=== PATIENT | female | born 1940 | race Caucasian/White ===

== ENCOUNTER 2020-10-17 12:48 | Emergency (ER) | payer MEDICARE ==
[~2020-10-17] VITALS: Ht 162.6 cm; Wt 84.0 kg
[2020-10-17] MEDS ORDERED: BACLOFEN 10 MG TABLET PO STA (13:05)
[2020-10-17] MEDS ORDERED: HYDROcodone/APAP 5/325MG 1 TAB TABLET PO ONE (13:30)
--- NOTE | 2020-10-17 13:57 | RAD ---
XR BILATERAL HIP (WITH OR WITHOUT PELVIS) LEFT 2 VIEWS History: Reason: pain, no trauma, replacement / Spl. Instructions: / History: Technique: AP view the pelvis and 2 additional views of the left hip. Comparison: None. Findings: Left total hip arthroplasty. Postoperative changes lumbar spine L4-L5 posterior stabilization with la teral mass graft. Normal alignment. No fracture. Mild sacroiliac DJD. Impression: 1. No acute osseous abnormality. 2. Left hip arthroplasty. Electronically signed by: Talha Anderson DO (10/17/2020 1:55 PM) [id number]
[2020-10-17] MEDS ORDERED: predniSONE 10 MG TABLET. PO ONE (14:15)
[2020-10-17] MEDS ORDERED: PRED-220 PO (14:17)
[2020-10-17] MEDS ORDERED: HYDR-2759 PO (14:17)
[2020-10-17] MEDS ORDERED: BACL10TA PO (14:17)
--- NOTE | 2020-10-17 14:18 | PHYS DOC ---
Past History Past Surgical History: Hip Replacement, Other Additional Past Surgical Histo: 2 RODS AND 4 SCREWS IN LOWER BACK General Adult EDM: Chief Complaint: HIP PAIN HPI: HPI: 80-year-old female presents with left low back/hip pain. She states the pain radiates into her groin and down to her knee. It is mostly centered in the low back at this time. It is painful to walk or bear weight. She denies any falls or trauma. It just started hurting today for no apparent reason. It is very tender to palpation over the sacroiliac region. She has had hip replacement in that hip previously. She also has surgical rods in her lumbar. The patient denies numbness or tingling or altered sensation on the legs. No loss of bowel or bladder. Review of Systems: Review of Systems: Constitutional: Denies fever or chills Eyes: Denies change in visual acuity HENT: Denies nasal congestion or sore throat Respiratory: Denies cough or shortness of breath Cardiovascular: Denies chest pain or edema GI: Denies abdominal pain, nausea, vomiting, bloody stools or diarrhea : Denies dysuria Musculoskeletal: Low back pain Integument: Denies rash Neurologic: Denies headache, focal weakness or sensory changes Endocrine: Denies polyuria or polydipsia Lymphatic: Denies swollen glands Psychiatric: Denies depression or anxiety Current Medications: Current Meds: Current Medications Medications (Trade) Dose Ordered Sig/Stephon Start Time Stop Time Status Last Admin Dose Admin Acetaminophen/ Hydrocodone Bitart (Lortab 5/325) 1 tab 1X ONCE 10/17/20 13:30 10/17/20 13:31 DC 10/17/20 13:23 1 TAB Baclofen (Lioresal) 10 mg 1X STAT 10/17/20 13:05 10/17/20 13:10 DC 10/17/20 13:23 10 MG Allergies: Allergies: Allergies Coded Allergies Type Severity Reaction Last Updated Verified pregabalin Allergy Unknown 10/17/20 Yes Physical Exam: PE: Constitutional: Well developed, well nourished, no acute distress, non-toxic appearance. [] HENT: Normocephalic, atraumatic, bilateral external ears normal, oropharynx mois t, no oral exudates, nose normal. [] Eyes: PERRLA, EOMI, conjunctiva normal, no discharge. [] Neck: Normal range of motion, no tenderness, supple, no stridor. [] Cardiovascular:Heart rate regular rhythm, no murmur [] Lungs & Thorax: Bilateral breath sounds clear to auscultation [] Abdomen: Bowel sounds normal, soft, no tenderness, no masses, no pulsatile masses. [] Skin: Warm, dry, no erythema, no rash. [] Back: Tenderness over the left sacroiliac joint. [] Extremities: Tenderness over the posterior left hip, no cyanosis, no clubbing, no edema. [] Neurologic: Alert and oriented X 3, normal motor function, normal sensory function, no focal deficits noted. [] Psychologic: Affect normal, judgement normal, mood normal. [] Current Patient Data: Vital Signs: Vital Signs Date Time Temp Pulse Resp B/P (MAP) Pulse Ox O2 Delivery O2 Flow Rate FiO2 10/17/20 13:23 16 10/17/20 12:48 98.0 90 156/71 97 Room Air EKG: EKG: [] Radiology/Procedures: Radiology/Procedures: [] Impressions: XR BILATERAL HIP (WITH OR WITHOUT PELVIS) LEFT 2 VIEWS History: Reason: pain, no trauma, replacement / Spl. Instructions: / History: Technique: AP view the pelvis and 2 additional views of the left hip. Comparison: None. Findings: Left total hip arthroplasty. Postoperative changes lumbar spine L4-L5 posterior stabilization with lateral mass graft. Normal alignment. No fracture. Mild sacroiliac DJD. Impression: 1. No acute osseous abnormality. 2. Left hip arthroplasty. Electronically signed by: Talha Sanchez DO (10/17/2020 1:55 PM) [id number] DICTATED AND SIGNED BY: TALHA SANCHEZ DO DATE: 10/17/20 1353 CC: ЕЛЕНА SERNA DO; LUCIAN REY ~MTH0 0 Heart Score: C/O Chest Pain: N/A Risk Factors: Risk Factors: DM, Current or recent (<one month) smoker, HTN, HLP, family history of CAD, obesity. Risk Scores: Score 0 - 3: 2.5% MACE over next 6 weeks - Discharge Home Score 4 - 6: 20.3% MACE over next 6 weeks - Admit for Clinical Observation Score 7 - 10: 72.7% MACE over next 6 weeks - Early Invasive Strategies Course & Med Decision Making: Course & Med Decision Making Pertinent Labs and Imaging studies reviewed. (See chart for details) The patient's x-ray is negative for fracture. Her hip replacement is in appropriate position. See official read for more details. Based on the patient's symptoms and my physical exam, it appears to be sacroiliitis with surrounding muscle spasm. I have treated her in the ER with baclofen, [place] 5/325 and 50 mg of prednisone. I will discharge her with prescriptions for these medications. She is stable for discharge at this time. [] Dragon Disclaimer: Dragon Disclaimer: This electronic medical record was generated, in whole or in part, using a voice recognition dictation system. Departure Departure: Impression: Primary Impression: Disorder of left sacroiliac joint Disposition: HOME / SELF CARE / HOMELESS Condition: STABLE Referrals: LUCIAN REY (PCP) Patient Instructions: Sacroiliac Joint Dysfunction Scripts Baclofen (BACLOFEN) 10 Mg Tablet 1 TAB PO TID PRN for MUSCLE SPASMS, #30 TAB 0 Refills Prov: ЕЛЕНА SERNA DO 10/17/20 Hydrocodone/Acetaminophen (Hydrocodone-Acetamin 5-325 mg) 1 Each Tablet 1 EACH PO Q4-6HRS PRN for PAIN, #10 TAB Prov: ЕЛЕНА SERNA DO 10/17/20 Prednisone (PREDNISONE) 10 Mg Tablet 50 MG PO DAILY for hip pain for 3 Days, #15 TAB Prov: ЕЛЕНА SERNA DO 10/17/20 ЕЛЕНА SERNA DO Oct 17, 2020 14:18
[2020-10-17 14:25] VITALS: BP 142/72
== END 2020-10-17 14:31 | disposition home or self-care (01) ==
LOC: ER 12:48
DX: M53.3 Sacrococcygeal disorders, not elsewhere classified (principal); M25.552 Pain in left hip; M54.5 Low back pain; Z96.649 Presence of unspecified artificial hip joint; Z88.8 Allergy status to other drugs, medicaments and biological substances
CPT/HCPCS: 73502; 99284; J7512

== ENCOUNTER 2020-10-22 00:22 | Emergency (ER) | payer MEDICARE ==
[~2020-10-22] VITALS: Ht 162.6 cm; Wt 81.8 kg
[~2020-10-22 00:22] MED LIST: BACL10TA PO; HYDR-2759 PO; PRED-220 PO
[2020-10-22] MEDS ORDERED: IV RINGERS SOLUTION,LACTATED 1,000 ML IV SCH (01:00)
--- NOTE | 2020-10-22 01:18 | EKG ---
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
[2020-10-22 01:20] LABS: BASO # 0.1 x10^3/uL (0.0-0.2); BASO % 1 % (0-3); EOS # 0.1 x10^3/uL (0.0-0.7); EOS % 1 % (0-3); HEMATOCRIT 42.9 % (36.0-47.0); LYMPH # 2.8 x10^3/uL (1.0-4.8); LYMPH % 28 % (24-48); MEAN CORPUSCULAR HEMOGLOBIN 29 pg (25-35); MEAN CORPUSCULAR HGB CONC 33 g/dL (31-37); MEAN CORPUSCULAR VOLUME 89 fL (79-100); MONO # 0.8 x10^3/uL (0.0-1.1); MONO % 8 % (0-9); NEUT # 6.2 x10^3uL (1.8-7.7); NEUT % 62 % (31-73); PLATELET COUNT 308 x10^3/uL (140-400); RED BLOOD COUNT 4.84 x10^6/uL (3.50-5.40); RED CELL DISTRIBUTION WIDTH 15.2 % (11.5-14.5)
[2020-10-22 01:33] LABS: ALBUMIN 3.9 g/dL (3.4-5.0); DIRECT BILIRUBIN 0.1 mg/dL (0.0-0.2); MAGNESIUM 2.7 mg/dL (1.8-2.4); TOTAL BILIRUBIN 0.4 mg/dL (0.2-1.0); TOTAL PROTEIN 7.1 g/dL (6.4-8.2)
--- NOTE | 2020-10-22 01:51 | RAD ---
INDICATION: Reason: mental status change / Spl. Instructions: / History: COMPARISON: None. TECHNIQUE: Axial CT images obtained through the head without intravenous contrast. One or more of the following individualized dose reduction techniques were utilized for this examinat ion: 1. Automated exposure control; 2. Adjustment of the mA and/or kV according to patient size; 3 . Use of iterative reconstruction technique. FINDINGS: No intracranial hemorrhage. No significant midline shift. Ventricles and sulci are globally prominent. Scattered foci of low attenuation within the white matter. IMPRESSION: * No acute intracranial hemorrhage. * Scattered regions of low attenuation within the white matter. Non-specific in nature but a common finding and frequently secondary to small vessel ischemic disease. Electronically signed by: Freddie Back MD (10/22/2020 1:49 AM) [id number]
--- NOTE | 2020-10-22 01:54 | RAD ---
INDICATION: Reason: cp / Spl. Instructions: / History: COMPARISON: None. FINDINGS: Single view of chest obtained. Hypoexpanded exam with mild elevation of the right hemidiaphragm. Haziness at left lung base without consolidation elsewhere in the lungs. Degenerative changes of the shoulders and spine. IMPRESSION: * Haziness at left lung base which could be secondary to overlap of structures or atelectasis but ea rly infiltrate is also within the differential. Electronically signed by: Freddie Back MD (10/22/2020 1:51 AM) [id number]
[2020-10-22 01:55] LABS: BUN ISTAT 59 mg/dL (8-26); GLUCOSE ISTAT 148 mg/dL (60-99); POTASSIUM ISTAT 4.7 mmol/L (3.5-5.0); SODIUM ISTAT 136 mmol/L (135-145)
[2020-10-22 01:59] LABS: BARBITURATES NEG (NEG); BENZODIAZEPINES NEG (NEG); CANNABINOIDS NEG (NEG); COCAINE NEG (NEG); METHADONE NEG (NEG); OPIATES POS (NEG); PHENCYCLIDINE NEG (NEG)
[2020-10-22 02:22] LABS: AMPHETAMINE/METHAMPHETAMINE NEG (NEG)
[2020-10-22 02:55] LABS: SEDIMENTATION RATE 20 (0-25)
[2020-10-22 03:04] LABS: BILIRUBIN,URINE NEG (NEG); CLARITY,URINE CLEAR; COLOR,URINE YELLOW; GLUCOSE,URINE >=1000 mg/dL (NEG); NITRITE,URINE NEG (NEG); UROBILINOGEN,URINE 0.2 mg/dL (0.2 mg/dL)
[2020-10-22 03:05] LABS: BACTERIA,URINE 0 /HPF (0-FEW); RBC,URINE 0 /HPF (0-2); SQUAMOUS EPITHELIAL CELL,UR FEW /LPF; WBC,URINE 0 /HPF (0-4)
--- NOTE | 2020-10-22 03:08 | PHYS DOC ---
Past History Past Medical History: Arthritis Past Surgical History: Hip Replacement, Other Additional Past Surgical Histo: 2 RODS AND 4 SCREWS IN LOWER BACK Alcohol Use: None General Adult EDM: Chief Complaint: ALTERED MENTAL STATUS HPI: HPI: "'''I was in here the other day... He said my sacro.. iliac was out of whack.. then put me some pain meds.. steroids.. I think the new meds... have made me goofy.. Maybe a little dizzy " " I have been a litte more short of breath recently too..." Patient is a 80 year old female who presents with dyspnea and altered mental status tonight. Pt. recent started on prednisone, hydrocodone and Baclofen. for sacroiliac inflammation. Patient was seen in the ER on 10/17 for the lower back pain. Pt. states she was somewhat confused tonight after taking some of new meds. Patient denies any recent travel. No specific ill contacts. No history of trauma. Patient denies any previous history of DVTs or pulmonary embolisms. Patient did get Covid vaccination in June. The pt. normally follows with Dr. Ha. Review of Systems: Review of Systems: Constitutional: Denies fever or chills Eyes: Denies change in visual acuity HENT: Denies nasal congestion or sore throat Respiratory: Complains of shortness of breath Cardiovascular: Denies chest pain or edema GI: Denies abdominal pain, nausea, vomiting, bloody stools or diarrhea : Denies dysuria Musculoskeletal: Recent history of exacerbation of lumbar sacral back pain Integument: Denies rash Neurologic: Denies headache, focal weakness or sensory changes. Patient complains of mild dizziness and almost confusion. Endocrine: Denies polyuria or polydipsia Lymphatic: Denies swollen glands Psychiatric: Denies depression or anxiety Family History: Family History: Noncontributory to presentation Current Medications: Current Meds: Current Medications Medications (Trade) Dose Ordered Sig/Stephon Start Time Stop Time Status Last Admin Dose Admin Lactated Ringer's 1,000 ml @ 1,000 mls/hr Q1H 10/22/20 01:00 10/22/20 01:59 DC 10/22/20 01:00 1,000 MLS/HR Allergies: Allergies: Allergies Coded Allergies Type Severity Reaction Last Updated Verified pregabalin Allergy Unknown 10/17/20 Yes Physical Exam: PE: Constitutional: Mild distress, non-toxic appearance. [] HENT: Normocephalic, atraumatic, bilateral external ears normal, oropharynx moist, no oral exudates, nose normal. [] Eyes: PERRLA, EOMI, conjunctiva normal, no discharge. [] Neck: Normal range of motion, no tenderness, supple, no stridor. No appreciable bruits Cardiovascular:Heart rate regular rhythm, no murmur [, PMI to the left Lungs & Thorax: Bilateral breath sounds equal apex on auscultation []. Some basilar crackles. Abdomen: Bowel sounds normal, soft, no tenderness, no masses, no pulsatile masses. Obese. Mild distention. Skin: Warm, dry, no erythema, no rash. Poor turgor Back: No tenderness, no CVA tenderness. Old surgery scars. Extremities: No tenderness, no cyanosis, no clubbing, ROM intact, ankle edema. Arthritic changes. No cording appreciated. Hip scar Neurologic: Alert and oriented X 3, moves all extremities on request, does have distal sensory, no focal deficits noted. [] DTRs +2 patella and brachial. Housekeeping Worker equal. Psychologic: Affect anxious, judgement normal, mood normal. [] Current Patient Data: Labs: Laboratory Tests Test 10/22/20 00:45 10/22/20 01:05 White Blood Count 10.0 x10^3/uL (4.0-11.0) Red Blood Count 4.84 x10^6/uL (3.50-5.40) Hemoglobin 14.0 g/dL (12.0-15.5) POC Hemoglobin gm/dL Hematocrit 42.9 % (36.0-47.0) POC Hematocrit % Mean Corpuscular Volume 89 fL (79-100) Mean Corpuscular Hemoglobin 29 pg (25-35) Mean Corpuscular Hemoglobin Concent 33 g/dL (31-37) Red Cell Distribution Width 15.2 % (11.5-14.5) H Platelet Count 308 x10^3/uL (140-400) Neutrophils (%) (Auto) 62 % (31-73) Lymphocytes (%) (Auto) 28 % (24-48) Monocytes (%) (Auto) 8 % (0-9) Eosinophils (%) (Auto) 1 % (0-3) Basophils (%) (Auto) 1 % (0-3) Neutrophils # (Auto) 6.2 x10^3uL (1.8-7.7) Lymphocytes # (Auto) 2.8 x10^3/uL (1.0-4.8) Monocytes # (Auto) 0.8 x10^3/uL (0.0-1.1) Eosinophils # (Auto) 0.1 x10^3/uL (0.0-0.7) Basophils # (Auto) 0.1 x10^3/uL (0.0-0.2) Erythrocyte Sedimentation Rate 20 (0-25) Prothrombin Time 10.0 SEC (9.4-11.4) Prothrombin Time INR 1.0 (0.9-1.1) D-Dimer (Clair) 1.53 mg/L (0.00-0.50) H POC Sodium 136 mmol/L (135-145) POC Potassium 4.7 mmol/L (3.5-5.0) POC Chloride 101 mmol/L (98-110) POC Total CO2 24 mmol/L (23-32) Anion Gap 21 mmol/L (6-14) H POC Blood Urea Nitrogen 59 mg/dL (8-26) H POC Creatinine 1.5 mg/dL (0.5-1.4) H Glucose Level 148 mg/dL (60-99) H POC Ionized Calcium (Lucia) 1.08 mmol/L (1.13-1.32) L Magnesium Level 2.7 mg/dL (1.8-2.4) H Total Bilirubin 0.4 mg/dL (0.2-1.0) Direct Bilirubin 0.1 mg/dL (0.0-0.2) Aspartate Amino Transferase (AST) 35 U/L (15-37) Alanine Aminotransferase (ALT) 29 U/L (14-59) Alkaline Phosphatase 74 U/L (46-116) Creatine Kinase 161 U/L (26-192) Troponin I Quantitative < 0.017 ng/mL (0-0.055) SB-Zaa-H-Type Natriuretic Peptide 154 pg/mL (0-449) Total Protein 7.1 g/dL (6.4-8.2) Albumin 3.9 g/dL (3.4-5.0) Lipase 128 U/L (73-393) Urine Collection Type Unknown Urine Color Yellow Urine Clarity Clear Urine pH 6.0 Urine Specific [place] 1.010 Urine Protein Neg (NEG-TRACE) Urine Glucose (UA) >=1000 mg/dL (NEG) Urine Ketones (Stick) Neg mg/dL (NEG) Urine Blood Neg (NEG) Urine Nitrite Neg (NEG) Urine Bilirubin Neg (NEG) Urine Urobilinogen Dipstick 0.2 mg/dL (0.2 mg/dL) Urine Leukocyte Esterase Neg (NEG) Urine RBC 0 /HPF (0-2) Urine WBC 0 /HPF (0-4) Urine Squamous Epithelial Cells Few /LPF Urine Bacteria 0 /HPF (0-FEW) Urine Opiates Screen Pos (NEG) Urine Methadone Screen Neg (NEG) Urine Barbiturates Neg (NEG) Urine Phencyclidine Screen Neg (NEG) Urine Amphetamine/Methamphetamine Neg (NEG) Urine Benzodiazepines Screen Neg (NEG) Urine Cocaine Screen Neg (NEG) Urine Cannabinoids Screen Neg (NEG) Urine Ethyl Alcohol Neg (NEG) Vital Signs: Vital Signs Date Time Temp Pulse Resp B/P (MAP) Pulse Ox O2 Delivery O2 Flow Rate FiO2 10/22/20 02:16 73 18 130/73 (92) 95 Room Air 10/22/20 00:48 99.0 EKG: EKG: [] Radiology/Procedures: Radiology/Procedures: [address] [address] IMAGING REPORT Signed PATIENT: DELORES GREGG AACCOUNT: [id number] : 1940 LOCATION: ER AGE: 80 SEX: F EXAM STATUS: REG ER ORD. PHYSICIAN: LAUREL OSMAN MD REASON: dyspnea, Q/S, OMNI 350, 75ml REDUCED DOSE, CREAT 1.5 GFR 33 PROCEDURE: CT ANGIOGRAPHY CHEST INDICATION: Reason: dyspnea, Q/S, OMNI 350, 75ml REDUCED DOSE, CREAT 1.5 GFR 33 / Spl. Instructions: / History: COMPARISON: None. TECHNIQUE: Axial CT images obtained through the chest. Intravenous contrast utilized. Angiogram 3D images processed per protocol. One or more of the following individualized dose reduction techniques were utilized for this examination: 1. Automated exposure control; 2. Adjustment of the mA and/or kV according to patient size; 3. Use of iterative reconstruction technique. FINDINGS: No evidence of pneumothorax. No focal airspace consolidation to suggest pneumonia. Liver is low density. Nonspecific but can be seen with fatty infiltration. Coronary artery calcific atherosclerosis. No thoracic aortic aneurysm. Degenerative changes of the spine. Small bilateral peripheral pulmonary emboli. No extension into the main pulmonary arteries. Patchy osseous demineralization. IMPRESSION: Small bilateral peripheral pulmonary emboli. Calcific atherosclerosis. Electronically signed by: Yoni Back MD (10/22/2020 5:13 AM) NanoDet[employer] [id number] DICTATED AND SIGNED BY: YONI BACK MD DATE: 10/22/20 0502 CC: LAUREL OSMAN MD; LUCIAN HA ~[facility] [address] [address] IMAGING REPORT Signed PATIENT: DELORES GREGG AACCOUNT: [id number] : 1940 LOCATION: ER AGE: 80 SEX: F EXAM STATUS: REG ER ORD. PHYSICIAN: LAUREL OSMAN MD REASON: cp PROCEDURE: PORTABLE CHEST 1V INDICATION: Reason: cp / Spl. Instructions: / History: COMPARISON: None. FINDINGS: Single view of chest obtained. Hypoexpanded exam with mild elevation of the right hemidiaphragm. Haziness at left lung base without consolidation elsewhere in the lungs. Degenerative changes of the shoulders and spine. IMPRESSION: * Haziness at left lung base which could be secondary to overlap of structures or atelectasis but early infiltrate is also within the differential. Electronically signed by: Yoni Back MD (10/22/2020 1:51 AM) [id number] DICTATED AND SIGNED BY: YONI BACK MD DATE: 10/22/20 0150 CC: LAUREL OSMAN MD; LUCIAN HA ~QTN0 0 [][address] [address] IMAGING REPORT Signed PATIENT: DELORES GREGG AACCOUNT: [id number] : 1940 LOCATION: ER AGE: 80 SEX: F EXAM STATUS: REG ER ORD. PHYSICIAN: LAUREL OSMAN MD REASON: mental status change PROCEDURE: CT HEAD WO CONTRAST INDICATION: Reason: mental status change / Spl. Instructions: / History: COMPARISON: None. TECHNIQUE: Axial CT images obtained through the head without intravenous contrast. One or more of the following individualized dose reduction techniques were utilized for this examination: 1. Automated exposure control; 2. Adjustment of the mA and/or kV according to patient size; 3. Use of iterative reconstruction technique. FINDINGS: No intracranial hemorrhage. No significant midline shift. Ventricles and sulci are globally prominent. Scattered foci of low attenuation within the white matter. IMPRESSION: * No acute intracranial hemorrhage. * Scattered regions of low attenuation within the white matter. Non-specific in nature but a common finding and frequently secondary to small vessel ischemic disease. Electronically signed by: Yoni Back MD (10/22/2020 1:49 AM) [id number] DICTATED AND SIGNED BY: YONI BACK MD DATE: 10/22/20 0145 CC: LAUREL OSMAN MD; LUCIAN HA ~MTH0 0 Heart Score: C/O Chest Pain: No HEART Score for Chest Pain: HEART Score for Chest Pain Response (Comments) Value History Moderately Suspicious 1 ECG Nonspecific Repolarizatio 1 Age > 65 2 Risk Factors 1 or 2 Risk Factors 1 Troponin < Normal Limit 0 Total 5 Risk Factors: Risk Factors: DM, Current or recent (<one month) smoker, HTN, HLP, family history of CAD, obesity. Risk Scores: Score 0 - 3: 2.5% MACE over next 6 weeks - Discharge Home Score 4 - 6: 20.3% MACE over next 6 weeks - Admit for Clinical Observation Score 7 - 10: 72.7% MACE over next 6 weeks - Early Invasive Strategies Course & Med Decision Making: Course & Med Decision Making Pertinent Labs and Imaging studies reviewed. (See chart for details) Patient to reduce her magnesium intake. Patient to take Eliquis 10 mg twice a day for 7 days. Then reduce dose to 5 mg twice a day. And possibly reduce further based on her creatinine . Review this with her primary care. Patient to use extreme care and ambulation, avoid risk of fall. Patient follow-up pending labs with primary care. Patient return if any concerns. Patient to avoid sequential doses of the hydrocodone and baclofen. Complete course of prednisone. Return if any concerns. Impression: 1. Dizziness and confusion-suspect combination of pain meds and muscle relaxants 2. Dyspnea 3. Small peripheral pulmonary embolisms. 4. Elevation D-dimer 1.53 5. Renal insufficiency BUN 58 creatinine 1.5 6. Diabetes glucose 148 7. Arthritis/degenerative joint disease [] Dragon Disclaimer: Dragmaria del carmen Disclaimer: This electronic medical record was generated, in whole or in part, using a voice recognition dictation system. Departure Departure: Referrals: LUCIAN HA (PCP) Scripts Apixaban (ELIQUIS) 5 Mg Tablet 5 MG PO bid x 30 days for PE, #60 TAB Prov: LAUREL OSMAN MD 10/22/20 Apixaban (Eliquis) 5 Mg Tab.ds.pk 10 MG PO twice a day x 7 days for PE, #21 PKG Prov: LAUREL OSMAN MD 10/22/20 LAUREL OSMAN MD Oct 22, 2020 03:08
[2020-10-22] MEDS ORDERED: IOHEXOL 350 MG/ML 100 ML VIAL. IV ONE (03:15)
[2020-10-22] MEDS ORDERED: CONTRAST GIVEN. MC PRN (03:30)
[2020-10-22] MEDS ORDERED: APIXABAN 5 MG TABLET. PO STA (05:15)
--- NOTE | 2020-10-22 05:16 | RAD ---
INDICATION: Reason: dyspnea, Q/S, OMNI 350, 75ml REDUCED DOSE, CREAT 1.5 GFR 33 / Spl. Instructions: / History: COMPARISON: None. TECHNIQUE: Axial CT images obtained through the chest. Intravenous contrast utilized. Angiogram 3D images proce ssed per protocol. One or more of the following individualized dose reduction techniques were utilized for this examinat ion: 1. Automated exposure control; 2. Adjustment of the mA and/or kV according to patient size; 3 . Use of iterative reconstruction technique. FINDINGS: No evidence of pneumothorax. No focal airspace consolidation to suggest pneumonia. Liver is low density. Nonspecific but can be seen with fatty infiltration. Coronary artery calcific atherosclerosis. No thoracic aortic aneurysm. Degenerative changes of the spine. Small bilateral peripheral pulmonary emboli. No extension into the main pulmonary arteries. Patchy osseous demineralization. IMPRESSION: Small bilateral peripheral pulmonary emboli. Calcific atherosclerosis. Electronically signed by: Freddie Back MD (10/22/2020 5:13 AM) [id number]
[2020-10-22] MEDS ORDERED: APIX5TAB5 PO (05:22)
[2020-10-22] MEDS ORDERED: APIX5TAB3 PO (05:22)
[2020-10-22 05:45] VITALS: BP 99/54
== END 2020-10-22 05:46 | disposition home or self-care (01) ==
LOC: ER 00:22
DX: R42 Dizziness and giddiness (principal); I26.99 Other pulmonary embolism without acute cor pulmonale; N28.9 Disorder of kidney and ureter, unspecified; E11.9 Type 2 diabetes mellitus without complications; R41.82 Altered mental status, unspecified
CPT/HCPCS: 36415; 70450; 71045; 71275; 80047; 80076; 80307; 81001; 82550; 83690; 83735; 83880; 84443; 84484; 85025; 85379; 85610; 85651; 93005; 96360; 99285; J7120; Q9967

== ENCOUNTER → 2020-11-08 | Outpatient (CLI) | payer MEDICARE ==
[2020-10-22 05:45] VITALS: BP 99/54
[~2020-11-08] MED LIST changes: +APIX5TAB3 PO; +APIX5TAB5 PO
--- NOTE | 2020-11-08 08:31 | RAD ---
EXAM: Bilateral lower extremity venous Doppler. HISTORY: Bilateral lower extremity pain/swelling. Pulmonary embolism. COMPARISON: None. FINDINGS: Grayscale and Doppler analysis of the both lower extremity deep venous systems was performe d with graded compression and augmentation. The common femoral, greater saphenous, superficial femora l, popliteal and calf veins were assessed. There is no evidence of deep venous thrombosis. IMPRESSION: 1. No evidence of deep venous thrombosis. Electronically signed by: Jessica Mcdaniel MD (11/08/2020 8:28 AM) [facility]
== END ==
LOC: US 07:57
PROVIDERS: ATTEND Family Medicine
DX: I26.99 Other pulmonary embolism without acute cor pulmonale (principal)
CPT/HCPCS: 93970

== ENCOUNTER → 2021-06-25 | Outpatient (CLI) | payer MEDICARE ==
--- NOTE | 2021-06-25 14:04 | RAD ---
EXAM: Renal sonogram. HISTORY: Renal insufficiency. TECHNIQUE: Sonographic imaging the kidneys and bladder was performed. COMPARISON: None. FINDINGS: The kidneys are normal in size. There is no solid or cystic renal lesion. There are promine nt left renal pyramids. There is no johnny hydronephrosis. The prevoid bladder volume is 76 cc. The ur eteral jets are both seen. IMPRESSION: No suspicious renal lesion. Electronically signed by: Nina Cintron MD (06/25/2021 2:01 PM) [id number]
== END ==
LOC: US 12:38
PROVIDERS: ATTEND Family Medicine
DX: N18.32 Chronic kidney disease, stage 3b (principal)
CPT/HCPCS: 76770